=== PATIENT | male | born 1980 | race Caucasian/White ===

== ENCOUNTER 2021-08-05 21:49 | Inpatient (IN) ==
[2021-08-05] MEDS ORDERED: VANCOMYCIN INJ 1,000 MG in SODIUM CHLORIDE 0.9% 250 ML IV STA (22:44)
[2021-08-05 23:11] LABS: Basophils # 0.1 10*3/uL (0.0-0.2); Basophils % 0.4 % (0.0-0.8); Eosinophils # 0.3 10*3/uL (0.0-0.87); Eosinophils % 1.7 % (0.00-10.9); Hematocrit 41.4 VOL% (42.0-52.0); Hemoglobin 13.9 GM/DL (14.0-18.0); Immature Granulocytes % 0.4 %; Immature Granulocytes Absolute 0.06 #; Lymphocytes # 2.3 10*3/uL (1.4-4.0); Lymphocytes % 14.2 % (21.2-54.2); Mean Corpuscular HGB Conc 33.6 GM/DL (32-36); Mean Corpuscular Volume 94.1 FL (87-102); Mean Platelet Volume 9.6 FL (9.6-12.0); Neutrophils % 72.3 % (38.7-73.9); Platelet Count 371 T/CUMM (130-400); Red Cell Distribution Width 13.6 % (9.3-17.3)
[2021-08-05] MEDS ORDERED: SODIUM CHLORIDE 0.9% 1,000 ML IV STA (23:19)
[2021-08-05 23:28] LABS: Alanine Aminotransferase 20 U/L (16-61); Albumin 3.4 G/DL (3.4-5.0); Alkaline Phosphatase 108 U/L (45-117); Aspartate Amino Transferase 10 U/L (0-37); Bilirubin,Total < 0.39 MG/DL (0.20-1.00); Blood Urea Nitrogen 18 MG/DL (7-18); Calcium 8.8 MG/DL (8.5-10.1); Carbon Dioxide 26 MMOL/L (21-32); Estimated Glom Filtration Rate 112 ML/MIN; Glucose 110 MG/DL (74-106); Osmolality,Calculated 281.4 MOS/KG (273-304); Sodium 140 MMOL/L (136-145); Total Protein 7.3 G/DL (6.4-8.2)
[2021-08-05] MEDS ORDERED: SODIUM CHLORIDE 0.9% 1,100 ML IV STA (23:30)
[2021-08-05] MEDS ORDERED: MORPHINE 2 MG/1 ML SYRINGE IV PRN (23:38)
[2021-08-05] MEDS ORDERED: NICOTINE 21 MG/24 HR PATCH TRANSDERM PRN (23:38)
[2021-08-05] MEDS ORDERED: GLUCAGON 1 MG VIAL IM PRN (23:38)
[2021-08-05] MEDS ORDERED: ONDANSETRON 4 MG/2 ML VIAL IV PRN (23:38)
[2021-08-05] MEDS ORDERED: hydrALAZINE 20 MG/1 ML VIAL IV PRN (23:38)
[2021-08-05] MEDS ORDERED: guaiFENesin/DM ER 600-30 MG TABLET PO PRN (23:38)
[2021-08-05] MEDS ORDERED: diphenhydrAMINE CAP 25 MG CAPSULE PO PRN (23:38)
[2021-08-05] MEDS ORDERED: ZALEPLON 5 MG CAPSULE PO PRN (23:38)
[2021-08-05] MEDS ORDERED: ACETAMINOPHEN 325 MG TABLET PO PRN (23:38)
[2021-08-05] MEDS ORDERED: DEXTROSE 50% 25 GM/50 ML SYRINGE IV PRN (23:38)
[2021-08-06] MEDS: CLINDAMYCIN INJ 600 MG/50 ML PREMIX IV SCH ×3 (01:58→16:59)
[2021-08-06] MEDS: SODIUM CHLORIDE 0.9% 1,000 ML IV SCH ×5 (01:59→22:49)
[2021-08-06 03:52] LABS: Reactive Lymphocytes Few
[2021-08-06 03:53] LABS: Anisocytosis 1+; Hypochromasia 1+; Microcytosis 1+; Platelet Estimate Normal
[2021-08-06] MEDS: BISACODYL 5 MG TABLET PO SCH (09:34)
[2021-08-06] MEDS: PANTOPRAZOLE 40 MG TABLET PO SCH (09:34)
[2021-08-06] MEDS: HEPARIN 5,000 UNIT/1 ML VIAL SUBCUT SCH ×2 (09:35→22:58)
[2021-08-06] MEDS: VANCOMYCIN INJ 1,250 MG in SODIUM CHLORIDE 0.9% 250 ML IV SCH ×2 (13:06→22:49)
[2021-08-07] MEDS: CLINDAMYCIN INJ 600 MG/50 ML PREMIX IV SCH ×3 (02:48→17:06)
[2021-08-07 07:03] LABS: Basophils # 0.1 10*3/uL (0.0-0.2); Basophils % 0.8 % (0.0-0.8); Eosinophils # 0.4 10*3/uL (0.0-0.87); Eosinophils % 4.1 % (0.00-10.9); Hematocrit 38.2 VOL% (42.0-52.0); Hemoglobin 12.5 GM/DL (14.0-18.0); Immature Granulocytes % 0.3 %; Immature Granulocytes Absolute 0.03 #; Lymphocytes # 2.9 10*3/uL (1.4-4.0); Lymphocytes % 30.5 % (21.2-54.2); Mean Corpuscular HGB Conc 32.7 GM/DL (32-36); Mean Platelet Volume 8.8 FL (9.6-12.0); Monocytes % 12.9 % (1.7-12.7); Neutrophils % 51.4 % (38.7-73.9); Platelet Count 383 T/CUMM (130-400); Red Blood Count 4.02 MC/CUMM (3.8-5.5); Red Cell Distribution Width 13.6 % (9.3-17.3); White Blood Count 9.6 T/CUMM (4-12)
[2021-08-07 07:20] LABS: Calcium 8.4 MG/DL (8.5-10.1); Osmolality,Calculated 279.3 MOS/KG (273-304)
[2021-08-07] MEDS: BISACODYL 5 MG TABLET PO SCH (09:52)
[2021-08-07] MEDS: PANTOPRAZOLE 40 MG TABLET PO SCH (09:52)
[2021-08-07] MEDS: HEPARIN 5,000 UNIT/1 ML VIAL SUBCUT SCH ×2 (09:53→20:33)
[2021-08-07] MEDS: SODIUM CHLORIDE 0.9% 1,000 ML IV SCH (11:41)
[2021-08-07] MEDS: VANCOMYCIN INJ 1,250 MG in SODIUM CHLORIDE 0.9% 250 ML IV SCH ×2 (11:41→22:35)
[2021-08-08] MEDS: SODIUM CHLORIDE 0.9% 1,000 ML IV SCH ×3 (02:45→09:39)
[2021-08-08] MEDS: CLINDAMYCIN INJ 600 MG/50 ML PREMIX IV SCH ×2 (02:45→09:15)
[2021-08-08 04:51] LABS: Basophils # 0.1 10*3/uL (0.0-0.2); Basophils % 0.9 % (0.0-0.8); Eosinophils # 0.6 10*3/uL (0.0-0.87); Eosinophils % 6.1 % (0.00-10.9); Hematocrit 39.8 VOL% (42.0-52.0); Hemoglobin 13.1 GM/DL (14.0-18.0); Immature Granulocytes % 0.2 %; Immature Granulocytes Absolute 0.02 #; Lymphocytes # 3.3 10*3/uL (1.4-4.0); Mean Corpuscular HGB Conc 32.9 GM/DL (32-36); Mean Corpuscular Volume 94.3 FL (87-102); Mean Platelet Volume 9.2 FL (9.6-12.0); Monocytes % 10.8 % (1.7-12.7); Platelet Count 423 T/CUMM (130-400); Red Blood Count 4.22 MC/CUMM (3.8-5.5); Red Cell Distribution Width 13.4 % (9.3-17.3)
[2021-08-08 05:05] LABS: Calcium 8.4 MG/DL (8.5-10.1); Potassium 3.6 MMOL/L (3.5-5.1)
[2021-08-08 07:33] VITALS: BP 112/60
[2021-08-08] MEDS: HEPARIN 5,000 UNIT/1 ML VIAL SUBCUT SCH (09:16)
[2021-08-08] MEDS: PANTOPRAZOLE 40 MG TABLET PO SCH (09:16)
[2021-08-08] MEDS: BISACODYL 5 MG TABLET PO SCH (09:16)
== END 2021-08-08 10:40 | disposition home or self-care (01) | DRG 603 ==
LOC: N.ED 21:49 → SUATTDRO 23:38 → N.EDINP 23:38 → N.5E 08-06 01:41
PROVIDERS: ADMIT Internal Medicine; ATTEND Internal Medicine